=== PATIENT | male | born 1995 | race African-American/Black ===

== ENCOUNTER 2020-04-30 22:47 | Emergency (ER) | payer SELFPAY ==
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
[2020-05-01] MEDS ORDERED: IBUPROFEN 600 MG TABLET PO ONE (00:16)
[2020-05-01] MEDS ORDERED: DIPH/PERTUSS(ACELL)/TETANUS VAC/PF 0.5 ML SYR (>=10YO) IM ONE (00:16)
[2020-05-01 05:30] VITALS: BP 110/72
== END 2020-05-01 02:25 | disposition home or self-care (01) ==
LOC: ER 22:47
DX: S21.112A Laceration without foreign body of left front wall of thorax without penetration into thoracic cavity, initial encounter (principal); X99.1XXA Assault by knife, initial encounter; Y92.009 Unspecified place in unspecified non-institutional (private) residence as the place of occurrence of the external cause
CPT/HCPCS: 90471; 90715; 99283